=== PATIENT | male | born 1945 | race Caucasian/White ===

== ENCOUNTER → 2018-07-20 | Outpatient (CLI) | payer OTHER | END | disposition home or self-care (01) | LOC: PLD 14:58 → LAB SHORT 14:58 | DX: C44.519 Basal cell carcinoma of skin of other part of trunk (principal) | CPT/HCPCS: 88305 ==

== ENCOUNTER 2020-09-28 13:34 | Day surgery (SDC) | payer OTHER ==
[~2020-09-28] VITALS: Ht 167.6 cm; Wt 83.6 kg
[2020-09-28] MEDS ORDERED: ASPI81CH (14:18)
[2020-09-28] MEDS ORDERED: ERGO50000 (14:19)
[2020-09-28] MEDS ORDERED: CENTRUM SILVER1 EAC2 (14:19)
[2020-09-28] MEDS ORDERED: ERGO400 (14:19)
[2020-09-28] MEDS ORDERED: METF500 (14:19)
[2020-09-28] MEDS ORDERED: Vitamin C100 M1 (14:19)
== END 2020-09-28 15:30 | disposition home or self-care (01) ==
LOC: ORSCSDS 13:34
PROVIDERS: Internal Medicine Gastroenterology
PROC: 0DBM8ZX Excision of Descending Colon, Via Natural or Artificial Opening Endoscopic, Diagnostic (ICD-10-PCS; principal; 2020-09-28 15:00)
PROC: 0DBL8ZX Excision of Transverse Colon, Via Natural or Artificial Opening Endoscopic, Diagnostic (ICD-10-PCS; principal; 2020-09-28 15:00)
DX: Z12.11 Encounter for screening for malignant neoplasm of colon (principal); Z86.010 Personal history of colon polyps; D12.4 Benign neoplasm of descending colon; D12.3 Benign neoplasm of transverse colon; K57.30 Diverticulosis of large intestine without perforation or abscess without bleeding; K64.8 Other hemorrhoids; E11.9 Type 2 diabetes mellitus without complications; I10 Essential (primary) hypertension; E78.5 Hyperlipidemia, unspecified; E66.9 Obesity, unspecified; Z68.31 Body mass index [BMI] 31.0-31.9, adult; Z79.82 Long term (current) use of aspirin; Z79.84 Long term (current) use of oral hypoglycemic drugs; Z79.899 Other long term (current) drug therapy
CPT/HCPCS: 82947; 88305; J2704; J7120

== ENCOUNTER 2021-09-21 10:41 | Emergency (ER) | payer OTHER ==
[~2021-09-21] VITALS: Ht 167.6 cm; Wt 72.6 kg
[~2021-09-21 10:41] MED LIST: ASPI81CH; CENTRUM SILVER1 EAC2; ERGO400; ERGO50000; METF500; Vitamin C100 M1
[2021-09-21 11:36] LABS: BASOPHILS ABSOLUTE AUTO 0.09 K/mm3 (0.00-0.23); BASOPHILS PERCENT AUTO 1 % (0-2); EOSINOPHILS ABSOLUTE AUTO 0.11 K/mm3 (0.00-0.68); EOSINOPHILS PERCENT AUTO 1 % (0-6); Hematocrit 43.8 % (37.0-53.0); Hemoglobin 14.4 g/dL (13.5-17.5); IMMATURE GRAN ABSOLUTE AUTO 0.03 K/mm3 (0.00-0.10); IMMATURE GRAN PERCENT AUTO 0 % (0-1); LYMPHOCYTES ABSOLUTE AUTO 2.77 K/mm3 (0.84-5.20); LYMPHOCYTES PERCENT AUTO 26 % (21-46); MONOCYTES ABSOLUTE AUTO 0.94 K/mm3 (0.16-1.47); MONOCYTES PERCENT AUTO 9 % (4-13); Mean Corpuscular HGB 29.9 pg (26.0-34.0); Mean Corpuscular HGB Conc 32.9 g/dL (31.5-36.5); Mean Corpuscular Volume 91 fL (80-100); Mean Platelet Volume 12.6 fL (9.1-12.4); NEUTROPHILS ABSOLUTE AUTO 6.84 K/mm3 (1.96-9.15); NEUTROPHILS PERCENT AUTO 64 % (41-73); Platelet Count 214 K/mm3 (150-400); RDW Coefficient Variation 13.4 % (11.7-14.2); RDW Standard Deviation 45.1 fL (35.1-46.3); Red Blood Cell Count 4.82 M/mm3 (4.30-5.90); White Blood Cell Count 10.78 K/mm3 (4.00-11.30)
[2021-09-21 11:50] LABS: C-REACTIVE PROTEIN, EXT RANGE 0.569 mg/dL (0.000-0.300)
[2021-09-21 11:52] LABS: Albumin, Blood 3.6 g/dL (3.4-5.0); Bun/Creatinine Ratio 16.9 (12.0-20.0); Calcium, Blood 9.1 mg/dL (8.5-10.1); Creatinine, Blood 0.89 mg/dL (0.60-1.20); Globulin, Blood 3.5 g/dL (2.2-4.0); Potassium, Blood 4.1 mmol/L (3.5-5.5); Total Protein, Blood 7.1 g/dL (6.4-8.2)
[2021-09-21] MEDS ORDERED: LIVALO2 MG PO (13:09)
== END 2021-09-21 14:20 | disposition home or self-care (01) ==
LOC: ER 10:41
PROVIDERS: Physician Assistant
DX: J02.9 Acute pharyngitis, unspecified (principal); I25.10 Atherosclerotic heart disease of native coronary artery without angina pectoris; Z79.82 Long term (current) use of aspirin; Z79.899 Other long term (current) drug therapy; Z79.84 Long term (current) use of oral hypoglycemic drugs; Z87.891 Personal history of nicotine dependence
CPT/HCPCS: 36415; 70491; 80053; 85025; 86140; Q9967

== ENCOUNTER 2021-11-25 10:23 | Emergency (ER) | payer OTHER ==
[~2021-11-25] VITALS: Ht 167.6 cm; Wt 85.7 kg
[~2021-11-25 10:23] MED LIST changes: +LIVALO2 MG PO
[2021-11-25 11:06] LABS: BASOPHILS ABSOLUTE AUTO 0.09 K/mm3 (0.00-0.23); BASOPHILS PERCENT AUTO 1 % (0-2); EOSINOPHILS ABSOLUTE AUTO 0.23 K/mm3 (0.00-0.68); EOSINOPHILS PERCENT AUTO 2 % (0-6); Hematocrit 41.3 % (37.0-53.0); Hemoglobin 13.7 g/dL (13.5-17.5); IMMATURE GRAN ABSOLUTE AUTO 0.02 K/mm3 (0.00-0.10); IMMATURE GRAN PERCENT AUTO 0 % (0-1); LYMPHOCYTES ABSOLUTE AUTO 3.15 K/mm3 (0.84-5.20); LYMPHOCYTES PERCENT AUTO 27 % (21-46); MONOCYTES ABSOLUTE AUTO 0.95 K/mm3 (0.16-1.47); MONOCYTES PERCENT AUTO 8 % (4-13); Mean Corpuscular HGB 29.7 pg (26.0-34.0); Mean Corpuscular HGB Conc 33.2 g/dL (31.5-36.5); Mean Corpuscular Volume 89 fL (80-100); Mean Platelet Volume 12.6 fL (9.1-12.4); NEUTROPHILS ABSOLUTE AUTO 7.15 K/mm3 (1.96-9.15); NEUTROPHILS PERCENT AUTO 62 % (41-73); Platelet Count 224 K/mm3 (150-400); RDW Coefficient Variation 13.2 % (11.7-14.2); RDW Standard Deviation 43.2 fL (35.1-46.3); Red Blood Cell Count 4.62 M/mm3 (4.30-5.90); White Blood Cell Count 11.59 K/mm3 (4.00-11.30)
[2021-11-25 11:27] LABS: C-REACTIVE PROTEIN, EXT RANGE <0.290 mg/dL (0.000-0.300)
[2021-11-25 11:59] LABS: Alanine Aminotransfer (ALT/SGP 29 U/L (12-78); Albumin, Blood 3.8 g/dL (3.4-5.0); Albumin/Globulin Ratio 1.1 (0.8-1.8); Alk Phos 77 U/L (50-136); Anion Gap 6 mmol/L (6-16); Aspartate Aminotrans (AST/SGOT 25 U/L (12-37); Bilirubin, Total 1.1 mg/dL (0.1-1.0); Blood Urea Nitrogen 15 mg/dL (8-24); Bun/Creatinine Ratio 14.9 (12.0-20.0); CO2, Blood 25 mmol/L (21-32); Calcium, Blood 9.5 mg/dL (8.5-10.1); Chloride, Blood 107 mmol/L (98-108); Creatinine, Blood 1.01 mg/dL (0.60-1.20); Globulin, Blood 3.5 g/dL (2.2-4.0); Glomerular Filtration Rate 78 (60-); Glucose, Blood 143 mg/dL (70-99); Potassium, Blood 4.2 mmol/L (3.5-5.5); Sodium, Blood 138 mmol/L (136-145); Total Protein, Blood 7.3 g/dL (6.4-8.2)
[2021-11-25] MEDS ORDERED: HYDR1TAB94 PO (14:24)
== END 2021-11-25 14:47 | disposition home or self-care (01) ==
LOC: ER 10:23
PROVIDERS: Physician Assistant
DX: C14.0 Malignant neoplasm of pharynx, unspecified (principal); Z87.891 Personal history of nicotine dependence; Z79.899 Other long term (current) drug therapy; Z79.82 Long term (current) use of aspirin; Z79.84 Long term (current) use of oral hypoglycemic drugs
CPT/HCPCS: 36415; 70491; 71260; 80053; 85025; 86140; J1170; J2405; J7030; Q9967

== ENCOUNTER → 2021-11-26 | Outpatient (CLI) | payer OTHER ==
[~2021-11-26] MED LIST changes: +HYDR1TAB94 PO
== END | disposition home or self-care (01) ==
LOC: LAB 07:39 → LAB SHORT 07:39 → PLD 07:39
DX: C10.9 Malignant neoplasm of oropharynx, unspecified (principal)
CPT/HCPCS: 88305; 88341; 88342

== ENCOUNTER 2021-12-09 09:52 | Day surgery (SDC) | payer OTHER ==
[~2021-12-09] VITALS: Ht 165.1 cm; Wt 79.4 kg
[2021-12-09] MEDS ORDERED: OXYC5 (10:34)
--- NOTE | 2021-12-09 11:38 | NUR ---
12/09/21 1138 Iva Morel See Anesthesia record. PROCEDURE CONDUCTED IN OR PER SURGEON'S REQUEST.
--- NOTE | 2021-12-09 13:15 | NUR ---
Discharge instructions reviewed with patient. Patient verbalizes understanding. Copy given to patient to take home. Patient States Post-Procedure ride home has been arranged. Discharged via wheelchair to private car for ride home. Patient up to Ambulate independently. Gait steady.
== END 2021-12-09 23:14 | disposition home or self-care (01) ==
LOC: ORSCMMR 09:52 → ORD 11:00 → ORSCMMR 11:00
PROVIDERS: Surgery
PROC: 0DH63UZ Insertion of Feeding Device into Stomach, Percutaneous Approach (ICD-10-PCS; principal; 2021-12-09 11:00)
DX: C10.9 Malignant neoplasm of oropharynx, unspecified (principal); R25.2 Cramp and spasm; H92.03 Otalgia, bilateral; E11.9 Type 2 diabetes mellitus without complications; I10 Essential (primary) hypertension; E78.5 Hyperlipidemia, unspecified; I35.0 Nonrheumatic aortic (valve) stenosis; Z79.82 Long term (current) use of aspirin; Z79.84 Long term (current) use of oral hypoglycemic drugs; Z79.899 Other long term (current) drug therapy; Z87.891 Personal history of nicotine dependence
CPT/HCPCS: 82947; J0690; J2250; J2370; J2704; J3010; J7120

== ENCOUNTER 2022-08-06 11:59 | Day surgery (SDC) | payer OTHER ==
[~2022-08-06] VITALS: Ht 167.6 cm; Wt 72.6 kg
[~2022-08-06 11:59] MED LIST changes: +DOXY100 PO; +NYSTATIN100000 U13 PO; +OXYC5
--- NOTE | 2022-08-06 15:33 | NUR ---
08/06/22 1533 KATELYNN AGRCIA PT USING MOUTH SWAB DAMPENED WITH ICE WATER
[2022-08-06 16:07] VITALS: BP 137/68
== END 2022-08-06 16:26 | disposition home or self-care (01) ==
LOC: ORSCSDS 11:59
PROVIDERS: Otolaryngology
PROC: 0CBM7ZZ Excision of Pharynx, Via Natural or Artificial Opening (ICD-10-PCS; principal; 2022-08-06 13:30)
DX: C10.9 Malignant neoplasm of oropharynx, unspecified (principal); E11.9 Type 2 diabetes mellitus without complications; I25.2 Old myocardial infarction; Z79.899 Other long term (current) drug therapy; Z79.84 Long term (current) use of oral hypoglycemic drugs; F17.210 Nicotine dependence, cigarettes, uncomplicated
CPT/HCPCS: 82947; A9270; J0171; J1100; J2001; J2250; J2405; J2704; J3010; J7120

== ENCOUNTER 2022-09-19 02:23 | Day surgery (SDC) | payer OTHER ==
[~2022-09-19 02:23] MED LIST changes: -METF500; +METF500 PO
[2022-09-19 10:38] VITALS: BP 128/74
[2022-09-19] MEDS ORDERED: FENTANYL1 EA19 TOP (11:13)
[2022-09-19] MEDS ORDERED: TRANSDERM-SCOP1 EA13 TD (11:14)
[2022-09-19] MEDS ORDERED: NYAMYC15 G1 TOP (11:14)
[2022-09-19] MEDS ORDERED: ONDANSETRON PO (11:15)
[2022-09-19] MEDS ORDERED: OXYC1L PT (11:18)
[2022-09-19] MEDS ORDERED: DEXA4 PO (11:18)
[2022-09-19] MEDS ORDERED: PSEU120ER (11:19)
== END 2022-09-19 11:37 | disposition home or self-care (01) ==
LOC: ATC 02:23
DX: C09.8 Malignant neoplasm of overlapping sites of tonsil (principal); E11.9 Type 2 diabetes mellitus without complications
CPT/HCPCS: 96360; J7030

== ENCOUNTER 2022-11-06 09:54 | Inpatient (IN) | payer OTHER ==
[~2022-11-06] VITALS: Ht 167.6 cm; Wt 70.9 kg
[2022-11-06] VITALS (28 sets, daily range): BP systolic 108–155; BP diastolic 54–78
[~2022-11-06 09:54] MED LIST changes: +AMOCLA250S PO; +DEXA4 PO; +FENTANYL1 EA19 TOP; +NYAMYC15 G1 TOP; +ONDANSETRON PO; +OXYC1L PT; +PSEU120ER; +TRANSDERM-SCOP1 EA13 TD
--- NOTE | 2022-11-06 11:19 | NUR ---
PT TO SDS VIA WC. PT AMBULATES WELL TO SCALE AND GURNEY. Surgical site prepped with 2% Chlorhexidine cloth wipe. History, Chart, Medications and Allergies reviewed before start of procedure. Lungs clear T/O to Auscultation. Patient confirms NPO status and agrees with scheduled surgery. Pre-Op teaching done. Pt verbalizes understanding. PT BELONGINGS PLACED UNDERNEATH GURNEY FOR SAFEKEEPING.
--- NOTE | 2022-11-06 12:16 | NUR ---
11/06/22 BHUPINDER SENIOR TOTAL OF 2ML OF 1% LIDOCAINE W/EPI 1:100,000 WAS USED LOCAL DURING OR CASE. ADMINISTERED BY DR. DE JESUS.
[2022-11-06 13:19] LABS: BASOPHILS ABSOLUTE AUTO 0.03 K/mm3 (0.00-0.23); BASOPHILS PERCENT AUTO 0 % (0-2); EOSINOPHILS ABSOLUTE AUTO 0.03 K/mm3 (0.00-0.68); EOSINOPHILS PERCENT AUTO 0 % (0-6); Hematocrit 32.2 % (37.0-53.0); Hemoglobin 10.7 g/dL (13.5-17.5); IMMATURE GRAN ABSOLUTE AUTO 0.03 K/mm3 (0.00-0.10); IMMATURE GRAN PERCENT AUTO 0 % (0-1); LYMPHOCYTES ABSOLUTE AUTO 1.37 K/mm3 (0.84-5.20); LYMPHOCYTES PERCENT AUTO 13 % (21-46); MONOCYTES ABSOLUTE AUTO 1.13 K/mm3 (0.16-1.47); MONOCYTES PERCENT AUTO 11 % (4-13); Mean Corpuscular HGB 28.8 pg (26.0-34.0); Mean Corpuscular HGB Conc 33.2 g/dL (31.5-36.5); Mean Corpuscular Volume 87 fL (80-100); Mean Platelet Volume 12.2 fL (9.1-12.4); NEUTROPHILS ABSOLUTE AUTO 8.14 K/mm3 (1.96-9.15); NEUTROPHILS PERCENT AUTO 76 % (41-73); Platelet Count 278 K/mm3 (150-400); RDW Coefficient Variation 13.6 % (11.7-14.2); RDW Standard Deviation 42.8 fL (35.1-46.3); Red Blood Cell Count 3.72 M/mm3 (4.30-5.90); White Blood Cell Count 10.73 K/mm3 (4.00-11.30)
[2022-11-06 13:39] LABS: Albumin, Blood 2.3 g/dL (3.4-5.0); Albumin/Globulin Ratio 0.6 (0.8-1.8); Bilirubin, Total 0.7 mg/dL (0.1-1.0); Bun/Creatinine Ratio 21.7 (12.0-20.0); Calcium, Blood 8.5 mg/dL (8.5-10.1); Creatinine, Blood 0.6 mg/dL (0.60-1.20); Globulin, Blood 3.8 g/dL (2.2-4.0); Potassium, Blood 4.2 mmol/L (3.5-5.5); Total Protein, Blood 6.1 g/dL (6.4-8.2)
--- NOTE | 2022-11-06 14:15 | NUR ---
Assumed care at 1209 approximately. Pt arrived to ICU from OR, report received from OR staff. Pt had trach placed in OR, arrived arousable to verbal stimuli, on oxygen blowby at 10 L/min. 02 switched to humidified trach collar, 26% Fi02 by RT. Pt c/o severe pain at trach site, orders obtained from Dr. Pierce for PRN pain medications. Family at bedside.
--- NOTE | 2022-11-06 17:12 | NUR ---
pt resting some discomfort from secretions. brought a pointing board to ease his communication. Review with nursing complex pain and risk for nausea. Will support .
--- NOTE | 2022-11-06 18:48 | NUR ---
Shift summary. Pt continues in bed, on RA via humidified trach collar. Pt c/o pain at trach site, PRN pain medications given for pain control, see emar. Pt coughing frequently, large amounts of thick red sputum suctioned from trach. Pt able to ambulate easily to room commode. No other acute needs, VS stable. at bedside this afternoon, states she has an obligation between 1pm and 3pm tomorrow and will be in afterwards, expressed interest in having care management and palliative care call her in the am to discuss plan of care. See assessment for further details. Will report off to nightshift RN.
--- NOTE | 2022-11-06 23:12 | NUR ---
ASSUMED CARE AT 1900 PT LAYING IN BED SLEEPING AT SHIFT CHANGE. HE IS A/O X4 AND ABLE TO MAKE HIS NEEDS KNOWN; HE DOESN'T TALK BUT COMMUNICATES BY WRITING, MOUTHING WORDS, OR HAND MOVEMENTS; AMBULATES SAFELY TO TOILET IN ROOM. 6.0 NON-FENESTRATED, NON CUFF TRACH PLACED EARLIER TODAY; HE WAS ON HUMIDIFIED MEDICAL AIR WITH TRACH COLLAR WHEN AWAKE; WHILE SLEEPING PLACED ON 6L BLEED IN WITH FIO2 21% D/T SPO2 DROPPING TO MID 80'S; SPO2 NOW 96%; MODERATE AMOUNT OF THICK BRUSH/YELLOW/RED TINGED SPUTUM FROM TRACH; NO SIGNS OF BLEEDING. TEMP OF 100.5; CALL MADE TO RESIDENT FOR TYLENOL, NEW ORDERS PROVIDED. HR 80'S AT REST AND UP TO THE 130'S WITH EXERTION. BP STABLE. PEG TUBE TO LUQ NOTED; SECURE DEVICE IN PLACE; CONSTIPATION NOTED BY PT; PRN MEDS GIVEN FOR CONSTIPATION ON DAY SHIFT LATE IN THE DAY, NONE GIVEN NOW. PRN PAIN MEDS GIVEN FOR 8/10 PAIN RELATED TO NEW TRACH AND THROAT. SEE SHIFT ASSESSMENT FOR FULL ASSESSMENT.
[2022-11-07] VITALS (13 sets, daily range): BP systolic 17–151; BP diastolic 51–119
--- NOTE | 2022-11-07 07:00 | NUR ---
ASSUME CARE: I have assumed care of this patient.
--- NOTE | 2022-11-07 07:21 | NUR ---
END OF SHIFT SUMMARY NO ACUTE EVENTS OVERNIGHT; HE WAS ABLE TO SLEEP FOR MOST OF THE NIGHT. HE CONT TO BE A/O X4 AND COMMUNICATES WELL WITH POINTING AND MOUTHING WORDS. PRN PAIN MEDS GIVEN AND HELPFUL. TRACH COLLAR O2 INCREASED TO HAVE A 6L BLEED IN D/T SPO2 DROPING INTO THE MID 80'S WHILE SLEEPING; CONT TO HAVE MODERATE AMOUNTS OF THICK YELLOW SECREATIONS FROM TRACH. HR 80-90'S. BP STABLE. AMBULATED WELL TO TOILET IN ROOM; ONE SMALL BM THIS SHIFT. AFTER PRN TYLENOL TEMP TRENDED DOWN. REPORT GIVEN TO TOMMY ROGERS.
[2022-11-07 16:13] LABS: Hematocrit 37.3 % (37.0-53.0); Mean Corpuscular HGB 28.6 pg (26.0-34.0); Mean Corpuscular HGB Conc 32.2 g/dL (31.5-36.5); Mean Corpuscular Volume 89 fL (80-100); Mean Platelet Volume 12.8 fL (9.1-12.4); Platelet Count 316 K/mm3 (150-400); RDW Standard Deviation 45.6 fL (35.1-46.3)
[2022-11-07 16:19] LABS: Bun/Creatinine Ratio 18.1 (12.0-20.0); Calcium, Blood 9.4 mg/dL (8.5-10.1); Creatinine, Blood 0.66 mg/dL (0.60-1.20); Potassium, Blood 4.7 mmol/L (3.5-5.5)
--- NOTE | 2022-11-07 16:26 | NUR ---
IGNITION RISK: PATIENT EDUCATED ON RISK RE: IGNITION SOURVES AND RISK OF INJURY WHILE OXYGEN IS IN USE. PATIENT DENIES SMOKING AND NODS TO UNDERSTANDING.
[2022-11-07 16:37] LABS: BAND PERCENT MAN 7 % (0-8); BASOPHILS PERCENT MAN 0 % (0-2); EOSINOPHILS PERCENT MAN 0 % (0-6); LYMPHOCYTES ABSOLUTE MAN 2.69 K/mm3 (0.84-5.20); LYMPHOCYTES PERCENT MAN 23 % (21-46); MONOCYTES ABSOLUTE MAN 0.58 K/mm3 (0.16-1.47); MONOCYTES PERCENT MAN 5 % (4-13); NEUTROPHILS ABSOLUTE MAN 8.42 K/mm3 (1.96-9.15); SEG NEUTROPHILS PERCENT MAN 65 % (41-73); TOTAL CELLS COUNTED 100
--- NOTE | 2022-11-07 17:12 | NUR ---
Spoke with Primary RN Julia and discussed case. Pt was to D/C home today but he does'nt feel well enough to D/C. Plan for physical therapy to work with Pt tomorrow and possibly D/C home tomorrow. Brief supportive visit this afternoon. Pt resting in bed and reports pain is managed with current regimen. Spouse at bedside. Offered therapeutic listening and answered questions. Pt and spouse report no concerns at this time. Palliative Care will remain available
--- NOTE | 2022-11-07 17:40 | NUR ---
SHIFT/TRANSFER SUMMARY: Patient transferred to room 339 from ICU via wheelchair. Report was given to KEN Russ. Pain managed throughout the day with oxycodone per tube, as well as IV fentanyl and dilauded. Antibiotics started and IV bolus given for elevated lactate. updated on plan of care.
--- NOTE | 2022-11-07 18:43 | NUR ---
LAB CALLED LACTIC ACID, 3.1, CALLED DR DAVIS, NO NEW ORDERS, WE JUST STARTED IVF AT 275. THESE WERE ORDERED WHEN PT IN ICU AND STARTED JUST NOW WHEN PT SETTLED AFTER SETTING UP SUCTION. PT STATES NORMALLY NEEDS 200 MCG FENTANYL PATCHES. DISCUSSED WITH DR DAVIS, SHE WILL ORDER PER HOME USE. DISCUSSED PT IS TAKING MULTIPLE IV RX ALSO FOR PAIN. SHE TO REVIEW AND D/C APPROP.
--- NOTE | 2022-11-07 19:39 | NUR ---
PT TO ROOM 1745. CALLED RT FOR SUCTION OF TRACH. MARTINI SETTING UP. RT ALSO SET UP TRACH HUMIDIFIED APPARATUS. SETTLED TO BED. STARTED IV AT 275 PER ORDERS. PT C/O PAIN NOT MANAGED AND SHOULD HAVE PATCHES PER CA DOC AT [address] DAVIS FOR ORDERS. SHE TO ADJUST BACK MUCH OF IV MEDS AND INCREASE FENTANYL PATCHES. DR TO WRITE ORDERS. ALSO DISCUSSED LACTIC ACID OF 3.1. - UP FROM 2.8 - PT JUST GETTING FLUID BOLUS , SO NO NEW ORDERS. AT BEDSIDE. AT SHIFT CHAANGE, QUESTIONING IF CAN START HOME DOSING PEG TUBE FEEDING. ADVISED HER TO ASK DR. HERNANDEZ TO [facility]. NO OTHER CONCERNS NOTED. BED IN LOW POSITION, CALL LITE IN REACH, CALLS APPROP
--- NOTE | 2022-11-07 20:43 | NUR ---
NOTIFIED BY FURNACE WORKER PT RUNNING SINUS TACH WITH TRIGEMINY AND PVC'S.
[2022-11-08 03:33] VITALS: BP 123/61
--- NOTE | 2022-11-08 03:43 | NUR ---
SHIFT SUMMARY NOC PT A/O X 4. PLEASANT AND COOPERATIVE WITH CARE. 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 PT IS NPO AND RECEIVES NUTRITION AND PO RX CRUSHED THROUGH PEG TUBE. PT RECEIVING IV ABX FOR PNA AND ALSO TRYING TO MANAGE PAIN CONTROL FROM CANCER ALEENA. FENTANYL PATCH ON R SHOULDER IN PLACE. PT DID NOT HAVE ANY C/O OF PAIN SO FAR DURING SHIFT. RT HAS SUCTIONED EXCESS SECRETIONS X 2. PT EDUCATED ON [facility] IGNITION/EXPLOSIVES NON SMOKING SAFETY POLICY. PT LACTIC ACID 3.1 YESTERDAY AND PT RECEIVED 1.5L OF FLUIDS, AWAITING AM LABS FOR REEVALUTATION. PT ON TELE RUNNING NSR @ 78 BPM. PT IS CURRENTLY RESTING WITH BED ALARM ON, BED IN LOWEST POSITION, AND CALL LIGHT WITHIN REACH.
[2022-11-08 06:17] LABS: Hematocrit 29.9 % (37.0-53.0); Hemoglobin 9.9 g/dL (13.5-17.5); Mean Corpuscular HGB Conc 33.1 g/dL (31.5-36.5); Mean Corpuscular Volume 88 fL (80-100); Mean Platelet Volume 12.7 fL (9.1-12.4); Platelet Count 274 K/mm3 (150-400); RDW Coefficient Variation 14.1 % (11.7-14.2); RDW Standard Deviation 44.7 fL (35.1-46.3); Red Blood Cell Count 3.41 M/mm3 (4.30-5.90)
[2022-11-08 06:55] LABS: BAND PERCENT MAN 26 % (0-8); BASOPHILS PERCENT MAN 0 % (0-2); EOSINOPHILS PERCENT MAN 0 % (0-6); LYMPHOCYTES ABSOLUTE MAN 0.96 K/mm3 (0.84-5.20); LYMPHOCYTES PERCENT MAN 8 % (21-46); METAMYELOCYTE ABSOLUTE MAN 0.24 K/mm3 (0.00-0.00); METAMYELOCYTE PERCENT MAN 2 % (0-0); MONOCYTES PERCENT MAN 5 % (4-13); MYELOCYTE ABSOLUTE MAN 0.12 K/mm3 (0.00-0.00); MYELOCYTE PERCENT MAN 1 % (0-0); NEUTROPHILS ABSOLUTE MAN 10.16 K/mm3 (1.96-9.15); SEG NEUTROPHILS PERCENT MAN 58 % (41-73); TOTAL CELLS COUNTED 100
[2022-11-08 07:31] VITALS: BP 127/63
[2022-11-08 11:01] LABS: Albumin, Blood 1.8 g/dL (3.4-5.0); Albumin/Globulin Ratio 0.5 (0.8-1.8); Bilirubin, Total 0.9 mg/dL (0.1-1.0); Bun/Creatinine Ratio 18.2 (12.0-20.0); Calcium, Blood 8.7 mg/dL (8.5-10.1); Creatinine, Blood 0.66 mg/dL (0.60-1.20); Globulin, Blood 3.7 g/dL (2.2-4.0); Potassium, Blood 3.9 mmol/L (3.5-5.5); Total Protein, Blood 5.5 g/dL (6.4-8.2)
[2022-11-08 12:27] LABS: Source, Urine Clean Catch
[2022-11-08 12:38] LABS: Appearance, Urine Clear (Clear); Bilirubin, Urine Neg (Neg); Blood, Urine Neg (Neg); Color, Urine Yellow (P-Yellow); Glucose Qualitative, Urine Neg (Neg); Ketones, Urine 2+ (Neg); Leukocyte Esterase, Urine Neg (Neg); Nitrite, Urine Neg (Neg); Protein, Urine 1+ (Neg); Specific Gravity, Urine 1.015 (1.003-1.022); Urobilinogen, Urine NORM (Normal)
[2022-11-08 17:17] VITALS: BP 127/62
--- NOTE | 2022-11-08 18:24 | NUR ---
SHIFT SUMMARY: Pt remains A&O X3. VSS. Pain managed with current regime. Pt requesting to start 200mcg Fentanyl patches Q 72 hours as ordered CLINICAL DOCUMENTATION MANAGER. [facility] fax copy of Rx on chart. Dr. Garcia made aware. Fentanyl 75mcg patch noted to pt back. Pt able to get to BSC with SBA. Resp even nonlbored. Li thick secretions noted via trach. Area wiped clean. PEG CDI. PEG feedings ordered and provided. brought in his Isosource 1.5 anabel from home. Pt tolerating feeds. No further needs id or verbalized at this time. Will continue to monitor this shift.
[2022-11-08 19:35] VITALS: BP 150/54
[2022-11-09 04:36] VITALS: BP 119/87
--- NOTE | 2022-11-09 05:55 | NUR ---
DEEP SUCTIONING PERFORMED. PT HAS GOOD COUGH AND ABLE TO EXPELLE MUCUS.
[2022-11-09 07:23] VITALS: BP 136/60
[2022-11-09 07:41] LABS: BASOPHILS ABSOLUTE AUTO 0.03 K/mm3 (0.00-0.23); BASOPHILS PERCENT AUTO 0 % (0-2); EOSINOPHILS ABSOLUTE AUTO 0.06 K/mm3 (0.00-0.68); EOSINOPHILS PERCENT AUTO 1 % (0-6); Hematocrit 28.9 % (37.0-53.0); Hemoglobin 9.8 g/dL (13.5-17.5); IMMATURE GRAN ABSOLUTE AUTO 0.06 K/mm3 (0.00-0.10); IMMATURE GRAN PERCENT AUTO 1 % (0-1); LYMPHOCYTES ABSOLUTE AUTO 1.38 K/mm3 (0.84-5.20); LYMPHOCYTES PERCENT AUTO 11 % (21-46); MONOCYTES ABSOLUTE AUTO 0.95 K/mm3 (0.16-1.47); MONOCYTES PERCENT AUTO 7 % (4-13); Mean Corpuscular HGB 29.2 pg (26.0-34.0); Mean Corpuscular HGB Conc 33.9 g/dL (31.5-36.5); Mean Corpuscular Volume 86 fL (80-100); Mean Platelet Volume 12.4 fL (9.1-12.4); NEUTROPHILS ABSOLUTE AUTO 10.38 K/mm3 (1.96-9.15); NEUTROPHILS PERCENT AUTO 81 % (41-73); Platelet Count 279 K/mm3 (150-400); RDW Coefficient Variation 13.8 % (11.7-14.2); RDW Standard Deviation 43.5 fL (35.1-46.3); Red Blood Cell Count 3.36 M/mm3 (4.30-5.90); White Blood Cell Count 12.86 K/mm3 (4.00-11.30)
[2022-11-09 08:17] LABS: Albumin, Blood 1.8 g/dL (3.4-5.0); Albumin/Globulin Ratio 0.5 (0.8-1.8); Bilirubin, Total 0.6 mg/dL (0.1-1.0); Bun/Creatinine Ratio 25.9 (12.0-20.0); Calcium, Blood 8.3 mg/dL (8.5-10.1); Creatinine, Blood 0.58 mg/dL (0.60-1.20); Globulin, Blood 3.7 g/dL (2.2-4.0); Potassium, Blood 3.4 mmol/L (3.5-5.5); Total Protein, Blood 5.5 g/dL (6.4-8.2)
--- NOTE | 2022-11-09 12:50 | NUR ---
1235 Call from tele with rhythm change. Tele strips indicated 2:1 block. 12 lead EKG indicates SR with PVC. Appears to be 1st degree AVB on 12 lead EKG. BP 139/68 HR 83 Pulse ox 95% humidified trach collar. Pt felt nauseated, no emesis. Declined breakfast and lunch tube feed. 150 ml residual noted. now at bedside and updated of above and isolation precautions now in place for MRSA sputum. Pt verbalizes nausea subsiding. Will continue to monitor.
[2022-11-09 15:41] VITALS: BP 135/64
--- NOTE | 2022-11-09 18:29 | NUR ---
SHIFT SUMMARY: Pt remains A&Ox3 this shift. Pt with arrhythmia this afternoon, Dr. Hernandez was informed. See previous note. VSS, SR now. Denies chest pain. Trach care provided with RT today. Continues with brown thick mucous per trach. Isolation prec in place for MRSA sputum. Fentanyl patch changed to right upper back. Pain managed with current regime. Pt declined PEG feedings today due to feeling full and nauseated. 150ml residual noted. No further needs id or verbalized at this time.
[2022-11-09 19:49] VITALS: BP 137/69
--- NOTE | 2022-11-10 03:09 | NUR ---
SHIFT SUMMARY NOC PT A/O X 4. PLEASANT AND COOPERATIVE WITH CARE. NO ACUTE CHANGES TO REPORT. PT HAD C/O OF PAIN IN NECK/TRACH SITE AND MEDICATED PER EMAR X 1. PT HAS SLEPT MAJORITY OF SHIFT. PT ONLY HAD TO BE SUCTIONED BY RT AT BEGINING OF SHIFT AND HAS BEEN ABLE TO MANAGE SECRETIONS ON OWN BY SELF SUCTIONING AND EXPELLING SECRETIONS THROUGH COUGH. TRACH STILL IN PLACE ON 35% HUMIDIFIED AIR WITH 8L O2 BLEED IN, MAINTAINING SPO2 >94% ON BIOX. ON TELE RUNNING SINUS RHYTHM @ 78 BPM. 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 ABX STILL BEING GIVEN FOR BL PNA. PT HS CBG 123, PER REPORT PT HAD REFUSED ALL FEEDINGS DURING DAY SHIFT AND LONG ACTING ISULIN WAS HELD. PT REFUSED ALL VISITORS YESTERDAY DUE TO NOT FEELING UP TO IT. PT EDUCATED ON [facility] FIRE PREVENTION SAFETY IGNITION/EXPLOSIVE NON SMOKING POLICY. PT IS CURRENTLY RESTING WITH BED IN LOWEST POSITION, AND CALL LIGHT WITHIN REACH.
[2022-11-10 03:21] VITALS: BP 140/66
[2022-11-10 05:32] LABS: BASOPHILS ABSOLUTE AUTO 0.03 K/mm3 (0.00-0.23); BASOPHILS PERCENT AUTO 0 % (0-2); EOSINOPHILS ABSOLUTE AUTO 0.21 K/mm3 (0.00-0.68); EOSINOPHILS PERCENT AUTO 2 % (0-6); Hematocrit 28.8 % (37.0-53.0); Hemoglobin 9.7 g/dL (13.5-17.5); IMMATURE GRAN ABSOLUTE AUTO 0.04 K/mm3 (0.00-0.10); IMMATURE GRAN PERCENT AUTO 0 % (0-1); LYMPHOCYTES ABSOLUTE AUTO 1.05 K/mm3 (0.84-5.20); LYMPHOCYTES PERCENT AUTO 9 % (21-46); MONOCYTES ABSOLUTE AUTO 1.03 K/mm3 (0.16-1.47); MONOCYTES PERCENT AUTO 9 % (4-13); Mean Corpuscular HGB 29.2 pg (26.0-34.0); Mean Corpuscular HGB Conc 33.7 g/dL (31.5-36.5); Mean Corpuscular Volume 87 fL (80-100); Mean Platelet Volume 12.8 fL (9.1-12.4); NEUTROPHILS ABSOLUTE AUTO 9.05 K/mm3 (1.96-9.15); NEUTROPHILS PERCENT AUTO 79 % (41-73); Platelet Count 303 K/mm3 (150-400); RDW Coefficient Variation 13.9 % (11.7-14.2); RDW Standard Deviation 43.8 fL (35.1-46.3); Red Blood Cell Count 3.32 M/mm3 (4.30-5.90); White Blood Cell Count 11.41 K/mm3 (4.00-11.30)
[2022-11-10 06:04] LABS: Albumin, Blood 1.7 g/dL (3.4-5.0); Albumin/Globulin Ratio 0.4 (0.8-1.8); Bilirubin, Total 0.7 mg/dL (0.1-1.0); Bun/Creatinine Ratio 22.1 (12.0-20.0); Calcium, Blood 8.4 mg/dL (8.5-10.1); Creatinine, Blood 0.54 mg/dL (0.60-1.20); Globulin, Blood 3.8 g/dL (2.2-4.0); Potassium, Blood 3.4 mmol/L (3.5-5.5); Total Protein, Blood 5.5 g/dL (6.4-8.2)
[2022-11-10 08:25] VITALS: BP 140/69
--- NOTE | 2022-11-10 14:42 | NUR ---
MESSAGE LEFT WITH DR. DE JESUS OFFICE MESSAGE LEFT WITH DR. DE JESUS OFFICE ABOUT THE SIGNIFICANT AMOUNT OF THICK SNOT COMING FROM PTS NOSE. COPIOUS AMOUNTS. AWAITING CALL BACK.
[2022-11-10 15:38] VITALS: BP 145/69
--- NOTE | 2022-11-10 17:51 | NUR ---
SHIFT SUMMARY PT SUCTIONED BY RT THIS AM AND SPEAKING VALVE PLACED OVER CAP. PT TOLERATING VALVE WELL. COPIOUS AMOUNTS OF SNOT (THICK & YELLOW/BRUSH IN COLOR) COMING OUT OF PTS NOSE. MOSTLY THE R NOSTRIL. DR. DE JESUS NOTIFIED OF THIS AND STATED IT WAS LIKELY FROM HIS CANCER AND SUCTIONING FROM RT SHOULD BE SUFFICIENT TREATMENT. PT TOLERATING 1 CAN AND 500CC OF WATER VIA HIS PEG FOR MEALS. PT DOES NOT WANT THE SECOND CAN ORDERED. SEE EMAR FOR PAIN FIRE TENDER. MOUTH/NECK PAIN IS THE PRIMARY PROBLEM. NO OTHER ACUTE CHANGES IN ASSESSMENT AT THIS TIME. VS REVIEWED. PT DENIES OTHER NEEDS AT THIS TIME.
[2022-11-10 19:43] VITALS: BP 151/76
[2022-11-10 21:10] LABS: Vancomycin, Trough 11.7 ug/mL (5.0-10.0)
[2022-11-11 04:40] VITALS: BP 140/78
--- NOTE | 2022-11-11 05:59 | NUR ---
SHIFT SUMMARY A/O MORE OPTIMISTIC TODAY SPEAKING MORE. STILL HAVING A LOT OF PAIN TO NECK INCISION AREA, I COVERED WITH MEDICATION. ISOLATION MRSA IN SPUTUM GOWN WORN AT BEDSIDE. PT VERY INDEPENDANT IN RM DOES VERY WELL WITH ALL THE CABLES AND FEELS CONFIDENT WHEN GETTING UP. WILL CONT MONITORING. PT REQUESTED HIS FEEDING THROUGH PEG TUBE, STATED HIS STOMACH WAS GROWLING. PT KNOWS HE IS NPOFOR LIQ VIA MOUTH USING SWAB WHEN NEEDED.
[2022-11-11 07:51] LABS: BASOPHILS ABSOLUTE AUTO 0.04 K/mm3 (0.00-0.23); BASOPHILS PERCENT AUTO 0 % (0-2); EOSINOPHILS ABSOLUTE AUTO 0.18 K/mm3 (0.00-0.68); EOSINOPHILS PERCENT AUTO 2 % (0-6); Hematocrit 30.7 % (37.0-53.0); Hemoglobin 10.2 g/dL (13.5-17.5); IMMATURE GRAN ABSOLUTE AUTO 0.09 K/mm3 (0.00-0.10); IMMATURE GRAN PERCENT AUTO 1 % (0-1); LYMPHOCYTES ABSOLUTE AUTO 1.77 K/mm3 (0.84-5.20); LYMPHOCYTES PERCENT AUTO 14 % (21-46); MONOCYTES PERCENT AUTO 11 % (4-13); Mean Corpuscular HGB 28.3 pg (26.0-34.0); Mean Corpuscular HGB Conc 33.2 g/dL (31.5-36.5); Mean Corpuscular Volume 85 fL (80-100); Mean Platelet Volume 11.8 fL (9.1-12.4); NEUTROPHILS ABSOLUTE AUTO 8.84 K/mm3 (1.96-9.15); NEUTROPHILS PERCENT AUTO 72 % (41-73); Platelet Count 353 K/mm3 (150-400); RDW Coefficient Variation 13.8 % (11.7-14.2); RDW Standard Deviation 43.4 fL (35.1-46.3); White Blood Cell Count 12.32 K/mm3 (4.00-11.30)
[2022-11-11 08:03] VITALS: BP 135/64
[2022-11-11 08:22] LABS: Bun/Creatinine Ratio 20.5 (12.0-20.0); Calcium, Blood 8.5 mg/dL (8.5-10.1); Creatinine, Blood 0.49 mg/dL (0.60-1.20); Potassium, Blood 3.5 mmol/L (3.5-5.5)
[2022-11-11 15:39] VITALS: BP 140/62
--- NOTE | 2022-11-11 17:13 | NUR ---
SHIFT SUMMARY PT FAILED BARRIUM SWALLOW TODAY. REMAINS STRICT NPO. RT IN TO SUCTION TRACH AND NOSE THIS AM. LARGE AMOUNTS OF NASAL DRAINAGE, THICK AND CLEAR/LIGHT YELLOW IN COLOR. PT TOLERATING NASAL SUCTION MUCH BETTER TODAY. PT AND EDUCATED ON TRACH CARE AND INNER CANULA CARE TODAY BY RTBRENNEN. PTS HELPED COMPLETE THIS CARE DURING EDUCATION. PLAN FOR TO COME IN TOMORROW TO COMPLETE IT AGAIN FOR MORE PRACTICE BEFORE DISCHARGING HOME TOMORROW. PT SHOWERED TODAY. TOLERATED WELL. PT AGREEABLE TO START AMBULATING TO THE BATHROOM TO VOID AND FOR BMS. PT CONTINUES TO TOLERATE ONLY ONE CAN OF FEEDS PER MEAL AT THIS TIME WITH THE ORDERED 500CC OF WATER. NO OTHER ACUTE CHANGES IN ASSESSMENT AT THIS TIME. VS REVIEWED. CALL LIGHT IN REACH.
[2022-11-11 20:01] VITALS: BP 153/65
[2022-11-12 04:16] VITALS: BP 139/67
--- NOTE | 2022-11-12 04:30 | NUR ---
A/O PT EWXCITED TO GO HOME, PAIN IS CONSTANT TO LEFT CHEEK WALL, TOLD PT I WOULD KEEP UP WITH PAIN MEDS. PT INDEPENDANT IN RM NOW HE IS ENC TO REMOVE LINES AND USE BATHROOM. OTHER THEN AN INCREASE IN PAIN THERE IS NO ADDITIONAL CHANGES IN PT CONDITION. WILL CONT TO MONITOR AND ENC REST.
[2022-11-12 05:31] LABS: BASOPHILS ABSOLUTE AUTO 0.03 K/mm3 (0.00-0.23); BASOPHILS PERCENT AUTO 0 % (0-2); EOSINOPHILS ABSOLUTE AUTO 0.17 K/mm3 (0.00-0.68); EOSINOPHILS PERCENT AUTO 2 % (0-6); Hematocrit 30.2 % (37.0-53.0); Hemoglobin 9.9 g/dL (13.5-17.5); IMMATURE GRAN PERCENT AUTO 1 % (0-1); LYMPHOCYTES PERCENT AUTO 14 % (21-46); MONOCYTES ABSOLUTE AUTO 1.18 K/mm3 (0.16-1.47); MONOCYTES PERCENT AUTO 11 % (4-13); Mean Corpuscular HGB 27.9 pg (26.0-34.0); Mean Corpuscular HGB Conc 32.8 g/dL (31.5-36.5); Mean Corpuscular Volume 85 fL (80-100); Mean Platelet Volume 11.9 fL (9.1-12.4); NEUTROPHILS ABSOLUTE AUTO 7.52 K/mm3 (1.96-9.15); NEUTROPHILS PERCENT AUTO 72 % (41-73); Platelet Count 377 K/mm3 (150-400); RDW Coefficient Variation 13.9 % (11.7-14.2); RDW Standard Deviation 43.3 fL (35.1-46.3); Red Blood Cell Count 3.55 M/mm3 (4.30-5.90)
[2022-11-12 06:17] LABS: Calcium, Blood 8.2 mg/dL (8.5-10.1); Creatinine, Blood 0.56 mg/dL (0.60-1.20); Potassium, Blood 3.3 mmol/L (3.5-5.5)
[2022-11-12 07:37] VITALS: BP 128/69
[2022-11-12] MEDS ORDERED: DOCUZEN 8.6-501 EACH PT (15:15)
[2022-11-12] MEDS ORDERED: OXYC1L PT (15:15)
[2022-11-12] MEDS ORDERED: MIRALAX17 GM PT (15:16)
[2022-11-12] MEDS ORDERED: KLOXXADO8 MG (15:18)
[2022-11-12] MEDS ORDERED: LEVOFLOXACIN750 M3 PT (15:18)
[2022-11-12] MEDS ORDERED: VISBIOME 112.51 EACH PO (15:18)
[2022-11-12] MEDS ORDERED: BACTRIM DS TAB1 EAC6 PT (15:19)
--- NOTE | 2022-11-12 16:54 | NUR ---
PATIENT DISCHARGED HOME WITH . ON 1L O2 VIA TACH MASK. HARD SCRIPT GIVEN TO SPOUSE FOR OXYCODONE. HARD SCRIPT FOR FENTANYL PATCH WAS REFUSED BY SPOUSE AND PATIENT SO IT WAS THROWN AWAY IN BLUE BIN. DISCHARGE INFORMATION GIVEN TO PATIENT AND SPOUSE. PATIENT'S IV WAS REMOVED, CATHETER TIP INTACT. PATIENT WAS PUSHED OUT TO HIS VEHICLE BY THE CHROME WORKER IN A WHEELCHAIR.
== END 2022-11-12 16:34 | disposition home or self-care (01) | DRG 4 ==
LOC: ICUE 09:54 → SURS 09:54 → PRE IP 11:15 → ICUE 12:18 → MEDS 11-07 15:20 → ICUE 11-07 15:21 → MEDS 11-07 17:30 → ENPENDDIS 11-12 12:37 → MEDS 11-12 16:34
PROVIDERS: Family Medicine; Internal Medicine; Student in an Organized Health Care Education/Training Program; ADMIT Otolaryngology
PROC: 0B110F4 Bypass Trachea to Cutaneous with Tracheostomy Device, Open Approach (ICD-10-PCS; principal; 2022-11-06 11:15)
PROC: 3E03329 Introduction of Other Anti-infective into Peripheral Vein, Percutaneous Approach (ICD-10-PCS; 2022-11-07)
DX: A41.02 Sepsis due to Methicillin resistant Staphylococcus aureus (principal); J69.0 Pneumonitis due to inhalation of food and vomit; E87.1 Hypo-osmolality and hyponatremia; E87.20 Acidosis, unspecified; C10.9 Malignant neoplasm of oropharynx, unspecified; R65.20 Severe sepsis without septic shock; B96.5 Pseudomonas (aeruginosa) (mallei) (pseudomallei) as the cause of diseases classified elsewhere; E11.9 Type 2 diabetes mellitus without complications; K59.03 Drug induced constipation; D63.8 Anemia in other chronic diseases classified elsewhere; E88.09 Other disorders of plasma-protein metabolism, not elsewhere classified; E77.8 Other disorders of glycoprotein metabolism; E87.6 Hypokalemia; T40.605A Adverse effect of unspecified narcotics, initial encounter; Z79.82 Long term (current) use of aspirin; Z79.84 Long term (current) use of oral hypoglycemic drugs; Z79.899 Other long term (current) drug therapy; Z90.49 Acquired absence of other specified parts of digestive tract; Z87.39 Personal history of other diseases of the musculoskeletal system and connective tissue; Z98.61 Coronary angioplasty status; Z79.891 Long term (current) use of opiate analgesic; Z93.0 Tracheostomy status; Z93.1 Gastrostomy status
CPT/HCPCS: 31720; 36415; 71045; 74230; 80048; 80053; 80202; 82947; 83605; 83735; 84145; 85025; 87040; 87070; 87077; 87147; 87186; 87205; 92526; 92610; 92611; 93005; 93010; 94760; 94761; 94762; 96365; 96367; 96372; 96375; 96376; 97110; 97110-CQ; 97116; 97162; A9270; G0378; J0295; J0456; J0696; J0713; J1170; J1650; J1815; J2704; J3010; J3370; J3480; J7030; J7050; J7120

== ENCOUNTER 2022-12-05 09:55 | Emergency (ER) | payer OTHER ==
[~2022-12-05] VITALS: Ht 165.1 cm; Wt 68.0 kg
[~2022-12-05 09:55] MED LIST changes: +BACTRIM DS TAB1 EAC6 PT; +DOCUZEN 8.6-501 EACH PT; +KLOXXADO8 MG; +LEVOFLOXACIN750 M3 PT; +MIRALAX17 GM PT; +VISBIOME 112.51 EACH PO
[2022-12-05 11:00] VITALS: BP 124/74
== END 2022-12-05 12:46 | disposition home or self-care (01) ==
LOC: ER 09:55
DX: J95.09 Other tracheostomy complication (principal); R09.02 Hypoxemia; I25.10 Atherosclerotic heart disease of native coronary artery without angina pectoris; I25.2 Old myocardial infarction; Z85.818 Personal history of malignant neoplasm of other sites of lip, oral cavity, and pharynx; Z85.118 Personal history of other malignant neoplasm of bronchus and lung; Z87.891 Personal history of nicotine dependence
CPT/HCPCS: 31502; 31720; 71045; 99283-25